=== PATIENT | female | born 1945 | race Caucasian/White ===

== ENCOUNTER → 2017-03-26 | Outpatient (CLI) | payer OTHER ==
[~2017-03-26] VITALS: Ht 154.9 cm; Wt 68.0 kg
[~2017-03-26] MED LIST: ALEVE220 MG PO; ALPRAZOLAM XR2 MG PO; ANORO ELLIPTA1 EACH INH; CRESTOR5 MG PO; ESTROGEL50 GM TOP; FLONASE 0.05%50 MCG NASAL; LISINOPRIL5 MG PO; MIRTAZAPINE PO; OXYGEN MISCELL; PROAIR HFA8.5 GM INH; RANITIDINE 150150 M1 PO; SINGULAIR 10 MG10 MG PO; SYNTHROID75 MCG PO; TEMAZEPAM30 MG PO; WELLBUTRIN SR150 MG PO; XANAX1 MG PO
--- NOTE | ~2017-03-26 | P ---
[facility] [place] [address] PROCEDURE REPORT Name: PADMAJA TAYLOR [id number] Admission: 03/26/17 Attend Phys: Ulysses Watts Discharge: Date of : 49 Report #: [id number] THIS REPORT FOR: //name// CC: Ulysses Drake [facility] physician/PCP Tifafny Pizarro MD DATE OF SERVICE: 03/26/2017 PROCEDURE PERFORMED: Colonoscopy. HISTORY OF PRESENT ILLNESS: The patient is a 72-year-old female with a history of colon polyps, here for a 5-year followup. She does have a family history of colon cancer in her father. She denies any symptoms at this time. PROCEDURE: The risks and benefits of the procedure were explained to the patient, those risks including, but not limited to bleeding, perforation, the risk of sedation. She understood these risks and gave informed consent. Sedation was given using propofol per anesthesia. Next, a digital rectal exam was initially performed, which was normal. Next, using a standard [employer] colonoscope, the scope was placed in the patient's anus and advanced under direct vision to the cecum. The overall prep was good. The cecum and ileocecal valve were normal in appearance. The ascending, transverse, and descending colon were normal. A few small diverticula were noted in the sigmoid colon. The rectal mucosa was normal. On retroflexion, small nonbleeding internal hemorrhoids were noted, otherwise normal colonoscopy. The scope was then withdrawn and the procedure terminated. The patient tolerated the procedure well. IMPRESSION: 1. Mild sigmoid diverticulosis. 2. Internal hemorrhoids, nonbleeding. 3. Otherwise, normal colonoscopy. RECOMMENDATIONS: Repeat colonoscopy in 5 years due to family history. Thank you for allowing me to participate in her care. By: [id number] [id number] Ulysses Drake MD /nt
== END | disposition home or self-care (01) ==
LOC: GI 08:08
DX: Z09 Encounter for follow-up examination after completed treatment for conditions other than malignant neoplasm (principal); Z87.19 Personal history of other diseases of the digestive system; K57.30 Diverticulosis of large intestine without perforation or abscess without bleeding; K64.8 Other hemorrhoids; I10 Essential (primary) hypertension; J43.9 Emphysema, unspecified; E03.9 Hypothyroidism, unspecified; E78.5 Hyperlipidemia, unspecified; K21.9 Gastro-esophageal reflux disease without esophagitis; F32.89 Other specified depressive episodes; F41.8 Other specified anxiety disorders; Z85.118 Personal history of other malignant neoplasm of bronchus and lung; Z80.0 Family history of malignant neoplasm of digestive organs; Z87.891 Personal history of nicotine dependence; Z90.710 Acquired absence of both cervix and uterus; Z98.890 Other specified postprocedural states; Z90.49 Acquired absence of other specified parts of digestive tract; Z90.2 Acquired absence of lung [part of]; Z88.2 Allergy status to sulfonamides; Z79.899 Other long term (current) drug therapy